=== PATIENT | female | born 1950 | race Caucasian/White ===

== ENCOUNTER → 2017-02-26 | Outpatient (CLI) | payer BC ==
[~2017-02-26] MED LIST: FESO8TAB PO; LEVO75TA PO; SYN75 PO
== END | disposition home or self-care (01) ==
LOC: C.MAMM 10:58
PROVIDERS: ATTEND Obstetrics & Gynecology
DX: E03.9 Hypothyroidism, unspecified (principal); Z76.89 Persons encountering health services in other specified circumstances; Z13.9 Encounter for screening, unspecified; M85.852 Other specified disorders of bone density and structure, left thigh; M85.851 Other specified disorders of bone density and structure, right thigh

== ENCOUNTER → 2017-03-11 | Outpatient (CLI) | payer BC ==
--- NOTE | 2017-03-11 15:48 | MAMMOGRAPHY REPORT ---
BILATERAL DIGITAL SCREENING MAMMOGRAM WITH CAD: 03/11/2017 CLINICAL HISTORY: Routine screening. Patient has no complaints. TECHNIQUE: Bilateral CC and MLO views were obtained. Current study was also evaluated with a Comput er Aided Detection (CAD) system. COMPARISON: Comparison is made to exams dated: 03/07/2016 mammogram, 03/07/2015 mammogram, 02/25/2014 m ammogram, 02/20/2013 mammogram, 11/16/2011 mammogram, and 11/08/2009 mammogram - [facility]. BREAST COMPOSITION: There are scattered areas of fibroglandular density in both breasts. FINDINGS: There are a few stable benign-appearing calcifications in the breasts. No new suspicious mass, architectural distortion or cluster of microcalcifications is seen. IMPRESSION: ACR BI-RADS CATEGORY 1: NEGATIVE There is no mammographic evidence of malignancy. A 1 year screening mammogram is recommended. The p atient will receive written notification of the results. Approximately 10% of breast cancers are not detected with mammography. A negative mammographic repor t should not delay biopsy if a clinically suggestive mass is present. Vicenta Doss M.D. ay/:03/11/2017 14:52:02 Ground Control Approach Technician: Aide Salmeron, [facility] letter sent: Normal 1/2 BI-RADS Code: ACR BI-RADS Category 1: Negative
== END | disposition home or self-care (01) ==
LOC: C.MAMM 09:11
PROVIDERS: ATTEND Obstetrics & Gynecology
DX: Z12.31 Encounter for screening mammogram for malignant neoplasm of breast (principal)

== ENCOUNTER → 2017-03-13 | Outpatient (CLI) | payer BC | LOC: C.PAPS 14:25 | PROVIDERS: ATTEND Obstetrics & Gynecology | DX: Z01.419 Encounter for gynecological examination (general) (routine) without abnormal findings (principal) ==

== ENCOUNTER → 2017-06-19 | Outpatient (CLI) | payer BC ==
--- NOTE | 2017-06-19 14:48 | DIAGNOSTIC IMAGING REPORT ---
LUMBAR SPINE MIN 4 VIEWS CLINICAL HISTORY: 67 years-old Female presenting with LUMBAGO, sacroiliac joint dysfunction, pain on the left with right. TECHNIQUE: Frontal, bilateral oblique, and lateral views of the lumbar spine and coned in lateral view of the lumbosacral junction were obtained. COMPARISON: None. FINDINGS: Slight dextrocurvature of the lumbar spine centered at L3. Approximately 5 mm of retrolisthesis of L2 on L3 noted. Vertebral body heights maintained. Intervertebral disc height loss at L1-2. Evaluation of the neural foramina is limited due to suboptimal oblique positioning. Within this limitation, no gross osseous neural foraminal narrowing. Nonobstructive bowel gas pattern. No gross pneumoperitoneum. IMPRESSION: 5 mm of retrolisthesis of L2 on L3 with mild dextroscoliosis. Electronically signed by: Ean Hanh M.D. 06/19/2017 2:47 PM Dictated Date/Time: 06/19/2017 2:44 PM
--- NOTE | 2017-06-19 14:50 | DIAGNOSTIC IMAGING REPORT ---
PELVIS 1 OR 2 VIEWS CLINICAL HISTORY: LUMBAGO. Bilateral sacroiliac pain. COMPARISON STUDY: None. FINDINGS: No fracture or dislocation within the pelvis or hips. The sacrum is intact. Mild bilateral sacroiliac joint osteoarthritis, left greater than right. This is demonstrated by mild sclerosis and small marginal osteophytes. Cartilage spaces within the hips are maintained. IMPRESSION: No fracture or dislocation within the pelvis or hips. Mild bilateral sacroiliac joint osteoarthritis. Electronically signed by: Faustino Key M.D. 06/19/2017 2:49 PM Dictated Date/Time: 06/19/2017 2:47 PM
== END | disposition home or self-care (01) ==
LOC: C.RDSM 14:22
PROVIDERS: ATTEND Physician Assistant
DX: M54.5 Low back pain (principal); M46.1 Sacroiliitis, not elsewhere classified

== ENCOUNTER 2017-06-20 11:39 | Emergency (ER) | payer BC ==
[~2017-06-20] VITALS: Ht 175.3 cm; Wt 62.2 kg
[~2017-06-20 11:39] MED LIST changes: -FESO8TAB PO; -SYN75 PO
[2017-06-20 11:48] VITALS: TEMP 36.7; Ht 175.3 cm; Wt 62.2 kg
[2017-06-20] MEDS ORDERED: FESO8TAB PO (12:14)
[2017-06-20] MEDS ORDERED: SYN75 PO (12:14)
--- NOTE | 2017-06-20 13:01 | EMERGENCY ROOM VISIT NOTE ---
History Report prepared by Patti: Ronda Sandy Under the Supervision of: Dr. Cheng Slater M.D. First contact with patient: 12:42 Chief Complaint: OTHER COMPLAINT Stated Complaint: NUMBNESS/KNEES History of Present Illness The patient is a 67 year old female who presents to the Emergency Room with complaints of bilateral lower extremity numbness and weakness that has been resolving over the past hour. The patient reports that around 1015 she received injections for her back pain in her bilateral SI joints. She states that she then began to notice numbness and tingling in her lower extremities. She states that she tried to ambulate, but could not. The patient states that she could not bear weight. She states that she continued to progressively lose feeling down her bilateral legs. The patient states that she could not lift her legs. She states that her symptoms then began to resolve around one hour ago. The patient states that over the past hour she her symptoms have continued to get better. She states that she still notices numbness in her bilateral upper legs and butt, noting that her left is worse than her right. The patient denies any back pain. She denies being on any blood thinners. Source of History: patient Onset: past hour Position: leg (bilateral) Quality: numbness, other (weakness) Timing: resolved (resolving) Review of Systems See HPI for pertinent positives & negatives. A total of 10 systems reviewed and were otherwise negative. Past Medical & Surgical Medical Problems: (1) Hypertension (2) Hypothyroid Family History No pertinent family history stated Social History Smoking Status: Never Smoker Marital Status: Housing Status: lives with significant other Occupation Status: retired Current/Historical Medications Scheduled Fesoterodine Fumarate (Toviaz), 8 MG PO QPM Levothyroxine Sodium (Synthroid), 75 MCG PO DAILY Allergies Coded Allergies: Iodinated Contrast Media (Verified Allergy, Unknown, UNKNOWN, 02/13/12) Hylan G-F 20 (Verified Adverse Reaction, Mild, POLYARTHRITIC CHANGES, 02/15) Physical Exam Vital Signs Date Time Temp Pulse Resp B/P (MAP) Pulse Ox O2 Delivery O2 Flow Rate FiO2 06/20/17 13:29 64 18 172/92 97 06/20/17 11:48 36.7 62 18 188/104 97 Room Air Physical Exam GENERAL: Patient is in no acute distress. HEENT: No acute trauma, normocephalic atraumatic, mucous membranes moist, no nasal congestion, no scleral icterus. NECK: No stridor, no adenopathy, no meningismus, trachea is midline. LUNGS: Clear to auscultation bilaterally, no wheeze, no rhonchi, breath sounds equal. HEART: Without murmurs gallops or rubs, regular rate and rhythm. ABDOMEN: Soft, nontender, bowel sounds positive, no hernias, no peritonitis. EXTREMITIES: No cyanosis or edema, full range of motion of all the joints without pain or difficulty, no signs for acute trauma. 2/4 patellar and Achilles reflexes bilaterally. Equal strength in both lower extremities, no drifting. NEUROLOGIC: Oriented x 3, no acute motor or sensory deficits, no focal weakness. SKIN: No rash, no jaundice, no diaphoresis. Medical Decision & Procedures ED Course 1248: The patient was evaluated in room C5. A complete history and physical exam was performed. 1320: I reevaluated the patient and she is ambulating normally. I discussed the treatment plan with her and she verbalized complete understanding and agreement. She is ready to go home. Medical Decision The patient is a 67 year old female who presents to the ED with complaints of resolving bilateral leg numbness and weakness. Differential diagnoses considered include hematoma, numbness secondary to injections, loss of reflexes , infection. The patient presents with bilateral leg weakness and numbness starting after epidural steroid injections. In the last hour, she has regained sensation and strength. She feels markedly better. She actually can now walk without difficulty. The physician who had performed the procedure arrived at the bedside and was surprised at how much strength and sensation had returned in just a short timeframe. He was very reassured. He felt comfortable with the patient being discharged as long as she continued to improve. The patient states that she feels well, she does want to be discharged home. She was encouraged to return for worsening weakness or numbness or any difficulty with her bowel or bladder function. Right now, it appears that the symptoms were transient and secondary to the injections themselves, hematoma or infection seems quite unlikely. Medication Reconcilliation Current Medication List: was personally reviewed by me Blood Pressure Screening Patient's blood pressure: Elevated blood pressure Blood pressure disposition: Elevated BP felt to be situational, Did not require urgent referral Impression Primary Impression: Leg weakness Additional Impressions: Leg numbness Status post epidural steroid injection Scribe Attestation The scribe's documentation has been prepared under my direction and personally reviewed by me in its entirety. I confirm that the note above accurately reflects all work, treatment, procedures, and medical decision making performed by me. Departure Information Dispostion Home / Self-Care Referrals Amadou Melton M.D. (PCP) Forms HOME CARE DOCUMENTATION FORM, IMPORTANT VISIT INFORMATION Patient Instructions My [facility] Additional Instructions rest return for worsening weakness or numbess return for difficulty with urination or bowels as we discussed Problem Qualifiers
[2017-06-20 13:29] VITALS: BP 172/92; PULSE 64; O2SAT 97
== END 2017-06-20 13:30 | disposition home or self-care (01) ==
LOC: EDBD 11:39 → C.EDC 11:40
DX: M62.81 Muscle weakness (generalized) (principal); R20.0 Anesthesia of skin; Z98.890 Other specified postprocedural states; I10 Essential (primary) hypertension; E03.9 Hypothyroidism, unspecified; Z79.899 Other long term (current) drug therapy

== ENCOUNTER → 2018-03-13 | Outpatient (CLI) | payer BC ==
[~2018-03-13] MED LIST changes: +FESO8TAB PO; -LEVO75TA PO; +SYN75 PO
--- NOTE | 2018-03-13 15:32 | MAMMOGRAPHY REPORT ---
BILATERAL DIGITAL SCREENING MAMMOGRAM TOMOSYNTHESIS WITH CAD: 03/13/2018 CLINICAL HISTORY: Routine screening. Patient has no complaints. TECHNIQUE: Breast tomosynthesis in addition to standard 2D mammography was performed. Current study was also evaluated with a Computer Aided Detection (CAD) system. COMPARISON: Comparison is made to exams dated: 03/11/2017 mammogram, 03/07/2016 mammogram, 03/07/2015 m ammogram, 02/25/2014 mammogram, 02/20/2013 mammogram, and 11/15/2010 mammogram - [facility]ter. BREAST COMPOSITION: There are scattered areas of fibroglandular density in both breasts. FINDINGS: No suspicious masses, calcifications, or areas of architectural distortion are noted in ei ther breast. There has been no significant interval change compared to prior exams. IMPRESSION: ACR BI-RADS CATEGORY 1: NEGATIVE There is no mammographic evidence of malignancy. A 1 year screening mammogram is recommended. The pa tient will receive written notification of the results. Approximately 10% of breast cancers are not detected with mammography. A negative mammographic report should not delay biopsy if a clinically suggestive mass is present. Ro Martell M.D. ah/:03/13/2018 09:51:26 Abrasive Water Jet Cutter Operator: Bere RODRIGUEZ(R)(M), [facility] letter sent: Normal 1/2 BI-RADS Code: ACR BI-RADS Category 1: Negative
== END | disposition home or self-care (01) ==
LOC: C.MAMM 09:04
PROVIDERS: ATTEND Obstetrics & Gynecology
DX: Z12.31 Encounter for screening mammogram for malignant neoplasm of breast (principal)